=== PATIENT | female | born 1980 | race Caucasian/White ===

== ENCOUNTER 2019-03-01 21:16 | Inpatient (IN) | payer MEDICAID ==
[~2019-03-01] VITALS: Ht 154.9 cm; Wt 83.5 kg
[2019-03-01] MEDS ORDERED: SODIUM CHLORIDE 0.9% 1,000 ML IV ONE (22:42)
[2019-03-01] MEDS ORDERED: ASPIRIN 81MG TABLET PO ONE (22:45)
[2019-03-01 23:20] LABS: BASOPHILS % 0.9 % (0.0-2.0); EOSINOPHILS % 2.1 % (0.0-5.0); HEMATOCRIT. 35.9 % (36.0-48.0); HEMOGLOBIN. 11.9 g/dL (12.0-16.0); LYMPHOCYTES % 27.4 % (20.0-50.0); MEAN CORPUSCULAR HEMOGLOBIN 26.4 pg (28.0-32.0); MEAN CORPUSCULAR VOLUME 79.5 fL (81.0-99.0); MEAN PLATELET VOLUME 8.9 fl (7.4-10.4); MONOCYTES % 11.2 % (2.0-8.0); NEUTROPHILS % 58.4 % (40.0-76.0); PLATELET 222 x1000/uL (130-400); RED BLOOD CELL COUNT 4.51 mill/uL (4.2-5.4); RED CELL DISTRIBUTION WIDTH 15.8 % (11.6-14.6)
[2019-03-01 23:21] LABS: CLARITY URINE CLEAR (CLEAR); COLOR URINE YELLOW (YELLOW); KETONES URINE NEGATIVE (NEGATIVE); LEUKOCYTE ESTERASE URINE NEGATIVE (NEGATIVE); NITRITE URINE NEGATIVE (NEGATIVE); OCCULT BLOOD URINE NEGATIVE (NEGATIVE); PROTEIN URINE NEGATIVE (NEGATIVE); SPECIFIC GRAVITY URINE 1.012 (1.005-1.030); UROBILINOGEN URINE 0.2 E.U./dL (0.2-1.0)
[2019-03-01 23:22] LABS: CHLORIDE 100 mEq/L (98-107)
[2019-03-01 23:25] LABS: PARTIAL THROMBOPLASTIN TIME 24.3 sec (23.4-31.0); PROTHROMBIN TIME 10.3 sec (9.6-11.0)
[2019-03-01 23:27] LABS: ETHANOL BLOOD < 10 mg/dL; HCG SCREEN NEGATIVE
[2019-03-01 23:30] LABS: CREATINE KINASE 419 IU/L (26-192)
[2019-03-01 23:33] LABS: CREATINE KINASE MB FRACTION 1.7 ng/mL (0.5-3.6)
[2019-03-01 23:37] LABS: *AMPHETAMINES SCREEN URINE NEGATIVE (NEGATIVE)
[2019-03-01 23:38] LABS: *BARBITURATES SCREEN URINE NEGATIVE (NEGATIVE); *BENZODIAZEPINES SCREEN URINE NEGATIVE (NEGATIVE); *COCAINE SCREEN URINE NEGATIVE (NEGATIVE); METHADONE URINE SCREEN NEGATIVE (NEGATIVE); OPIATES URINE SCREEN NEGATIVE (NEGATIVE); PHENCYCLIDINE URINE SCREEN NEGATIVE (NEGATIVE)
[2019-03-01 23:39] LABS: CANNABINOID URINE SCREEN NEGATIVE (NEGATIVE)
[2019-03-01] MEDS ORDERED: POTASSIUM CHLORIDE 20MEQ TABLET SR PO ONE (23:45)
[2019-03-02 04:00] VITALS: BP 133/77
[2019-03-02] MEDS ORDERED: ATEN50TA PO (04:06)
[2019-03-02 04:12] VITALS: BP 133/74
[2019-03-02] MEDS ORDERED: DOCUSATE SODIUM 100MG CAPSULE PO PRN (07:45)
[2019-03-02] MEDS ORDERED: ENOXAPARIN 40MG/0.4ML SYR SUBCUT SCH (07:45)
[2019-03-02] MEDS ORDERED: CLONIDINE 0.1MG TABLET PO PRN (07:45)
[2019-03-02] MEDS ORDERED: MAGNESIUM/ALUMINUM HYDROXIDE/SIMETHICONE 30ML UDC PO PRN (07:45)
[2019-03-02] MEDS ORDERED: ONDANSETRON HCL 4MG/2ML INJ IV PRN (07:45)
[2019-03-02] MEDS ORDERED: GUAIFENESIN 200MG/10ML SUGAR FREE UDC PO PRN (07:45)
[2019-03-02] MEDS ORDERED: MORPHINE SULFATE 2 MG/ML CPJ (NOT FOR IM USE) IV PRN (07:45)
[2019-03-02] MEDS ORDERED: DIPHENHYDRAMINE 50MG/ML VIAL IV PRN (07:45)
[2019-03-02 08:00] VITALS: BP 119/63
[2019-03-02] MEDS ORDERED: PNEUMOCOCCAL 23-VAL P-SAC VAC 0.5 ML IM ONE (08:00)
[2019-03-02] MEDS ORDERED: POTASSIUM CHLORIDE 20MEQ/PACKET PO SCH (10:15)
[2019-03-02] MEDS: CEFTRIAXONE 1 G PREMIX 50 ML IV SCH (10:24)
[2019-03-02] MEDS: ACETAMINOPHEN 325MG TABLET PO PRN ×2 (10:24→22:26)
[2019-03-02] MEDS: ENOXAPARIN 30MG/0.3ML SYR SUBCUT SCH ×2 (10:25→22:18)
[2019-03-02] MEDS ORDERED: POTASSIUM CHLORIDE INJ 40 MEQ in DEXT 5% WATER 250 ML IV SCH (11:00)
[2019-03-02] MEDS: AMLODIPINE 2.5MG TABLET PO SCH ×2 (11:34→21:00)
[2019-03-02 11:56] VITALS: BP 113/65
[2019-03-02 16:00] VITALS: BP 122/62
[2019-03-02 16:05] LABS: CHLORIDE 101 mEq/L (98-107)
[2019-03-02 16:11] LABS: PHOSPHORUS 2.5 mg/dL (2.5-4.9)
[2019-03-02 16:14] LABS: CREATINE KINASE MB FRACTION 1.2 ng/mL (0.5-3.6); T4 FREE 1.44 ng/dL (0.76-1.46)
[2019-03-02 16:36] LABS: HEPATITIS B SURFACE ANTIGEN NEGATIVE
[2019-03-02 17:06] LABS: HEPATITIS A AB IGM NEGATIVE (NEGATIVE)
[2019-03-02 20:00] VITALS: BP 101/64
[2019-03-02] MEDS ORDERED: POTASSIUM CHLORIDE 20MEQ/PACKET PO NR (22:00)
[2019-03-03] VITALS: BP 124/70
[2019-03-03 00:48] LABS: CREATINE KINASE 290 IU/L (26-192)
[2019-03-03 00:49] LABS: CREATINE KINASE MB FRACTION < 1.0 ng/mL (0.5-3.6)
[2019-03-03 04:00] VITALS: BP 99/56
[2019-03-03 05:00] VITALS: BP 100/60
[2019-03-03 07:48] VITALS: BP 115/71
[2019-03-03] MEDS: CEFTRIAXONE 1 G PREMIX 50 ML IV SCH (08:39)
[2019-03-03] MEDS: ACETAMINOPHEN 325MG TABLET PO PRN (08:40)
[2019-03-03] MEDS: AMLODIPINE 2.5MG TABLET PO SCH (08:40)
[2019-03-03] MEDS: ENOXAPARIN 30MG/0.3ML SYR SUBCUT SCH (08:41)
[2019-03-03 09:01] LABS: BASOPHILS % 1.2 % (0.0-2.0); EOSINOPHILS % 1.9 % (0.0-5.0); HEMATOCRIT. 31.8 % (36.0-48.0); HEMOGLOBIN. 10.6 g/dL (12.0-16.0); LYMPHOCYTES % 22.7 % (20.0-50.0); MEAN CORPUSCULAR HEMOGLOBIN 26.4 pg (28.0-32.0); MEAN CORPUSCULAR VOLUME 78.9 fL (81.0-99.0); MEAN PLATELET VOLUME 8.7 fl (7.4-10.4); MONOCYTES % 13.2 % (2.0-8.0); PLATELET 245 x1000/uL (130-400); RED BLOOD CELL COUNT 4.03 mill/uL (4.2-5.4); RED CELL DISTRIBUTION WIDTH 15.7 % (11.6-14.6)
[2019-03-03 09:22] LABS: CHLORIDE 102 mEq/L (98-107)
[2019-03-03 09:32] LABS: LDL CHOLESTEROL 84 mg/dL (5-100)
[2019-03-03 09:33] LABS: HDL CHOLESTEROL 40 mg/dL (40-59)
[2019-03-03] MEDS ORDERED: POTASSIUM CHLORIDE 20MEQ TABLET SR PO SCH (10:00)
[2019-03-03 11:52] VITALS: BP 112/70
[2019-03-03] MEDS ORDERED: MAGNESIUM OXIDE 400MG TABLET PO SCH (13:00)
[2019-03-03 14:51] VITALS: BP 112/70
[2019-03-04] MEDS ORDERED: ENOXAPARIN 40MG/0.4ML SYR SUBCUT SCH (09:00)
[2019-03-05 04:16] LABS: HIV SCREEN 4G Non Reactive (Non Reactive)
== END 2019-03-03 15:40 | disposition home or self-care (01) | DRG 425 ==
LOC: ER 21:16 → 8WST 03-02 01:01 → EDBEDREQ 03-02 01:05 → EDBEDREQTM 03-02 01:05 → ENRESERV 03-02 01:39
PROVIDERS: ADMIT Internal Medicine; ATTEND Internal Medicine
DX: E87.6 Hypokalemia (principal); E87.2 Acidosis; M94.0 Chondrocostal junction syndrome [Tietze]; B34.9 Viral infection, unspecified; D64.9 Anemia, unspecified; E03.9 Hypothyroidism, unspecified; E78.5 Hyperlipidemia, unspecified; I10 Essential (primary) hypertension; R73.9 Hyperglycemia, unspecified; R74.0 Nonspecific elevation of levels of transaminase and lactic acid dehydrogenase [LDH]; Z79.899 Other long term (current) drug therapy
CPT/HCPCS: 36415; 71045; 76700; 80048; 80061; 80305; 80320; 82550; 82553; 83605; 83735; 83880; 84100; 84439; 84443; 84481; 84484; 84703; 86705; 86709; 86803; 87340; 87389; 93005; 93306; 93970; 96374; 97165; 99285; J0696; J1650; J2405; J3480; J7030; J7040; J7060; G0480

== ENCOUNTER 2019-09-07 13:13 | Emergency (ER) | payer MEDICAID ==
[~2019-09-07] VITALS: Ht 162.6 cm; Wt 84.0 kg
[~2019-09-07 13:13] MED LIST: ATEN50TA PO
[2019-09-07] MEDS ORDERED: IBUPROFEN 600MG TABLET PO STA (15:56)
[2019-09-07 16:00] VITALS: BP 155/72
[2019-09-07 16:05] LABS: CLARITY URINE CLEAR (CLEAR); COLOR URINE YELLOW (YELLOW); KETONES URINE NEGATIVE (NEGATIVE); LEUKOCYTE ESTERASE URINE NEGATIVE (NEGATIVE); NITRITE URINE NEGATIVE (NEGATIVE); OCCULT BLOOD URINE NEGATIVE (NEGATIVE); PH URINE 6.5 (4.5-8.0); PROTEIN URINE NEGATIVE (NEGATIVE); SPECIFIC GRAVITY URINE 1.017 (1.005-1.030); UROBILINOGEN URINE 0.2 E.U./dL (0.2-1.0)
== END 2019-09-07 17:40 | disposition home or self-care (01) ==
LOC: ER 13:13
DX: D17.39 Benign lipomatous neoplasm of skin and subcutaneous tissue of other sites (principal); B00.9 Herpesviral infection, unspecified; M54.31 Sciatica, right side; I10 Essential (primary) hypertension
CPT/HCPCS: 73502; 76881; 81003; 81025; 82962; 99284

== ENCOUNTER 2023-07-06 15:31 | Emergency (ER) | payer MEDICAID ==
[~2023-07-06] VITALS: Ht 165.1 cm; Wt 91.0 kg
[2023-07-06 15:37] VITALS: BP 151/95; PULSE 71; RESP 18; TEMP 98.3; O2SAT 98
[2023-07-06 16:00] LABS: CLARITY URINE CLEAR (CLEAR); COLOR URINE YELLOW (YELLOW); GLUCOSE URINE NEGATIVE (NEGATIVE); KETONES URINE NEGATIVE (NEGATIVE); LEUKOCYTE ESTERASE URINE NEGATIVE (NEGATIVE); NITRITE URINE NEGATIVE (NEGATIVE); OCCULT BLOOD URINE NEGATIVE (NEGATIVE); PROTEIN URINE NEGATIVE (NEGATIVE); SPECIFIC GRAVITY URINE 1.011 (1.005-1.030)
[2023-07-06 16:16] LABS: BASOPHILS % 1.1 % (0.0-2.0); DIFFERENTIAL COMMENT 0; EOSINOPHILS % 1.8 % (0.0-5.0); HEMATOCRIT. 41.3 % (36.0-48.0); HEMOGLOBIN. 13.5 g/dL (12.0-16.0); MEAN CORPUSCULAR HEMOGLOBIN 24.5 pg (28.0-32.0); MEAN CORPUSCULAR HGB CONC 32.6 g/dL (31.0-37.0); MEAN CORPUSCULAR VOLUME 75.1 fL (81.0-99.0); MEAN PLATELET VOLUME 8.3 fl (7.4-10.4); MONOCYTES % 7.5 % (2.0-8.0); NEUTROPHILS % 41.6 % (40.0-76.0); PLATELET 346 x1000/uL (130-400); WHITE BLOOD COUNT 8.8 x1000/uL (4.5-11.0)
[2023-07-06 16:23] LABS: CHLORIDE 108 mEq/L (98-107); INDEX HEMOLYSI 1 (1-3); INDEX ICTERIC 1 (1-4); INDEX LIPEMIC 1 (1-3); POTASSIUM 3.5 mEq/L (3.5-5.1); PROTHROMBIN TIME 10.3 sec (9.6-11.0); SODIUM 140 mEq/L (136-145)
[2023-07-06 16:32] LABS: ALANINE AMINOTRANSFERASE 136 IU/L (13-61); ASPARTATE AMINOTRANSFERASE 93 IU/L (15-37); BILIRUBIN TOTAL 0.9 mg/dL (0.1-1.0); CALCIUM 9.1 mg/dL (8.5-10.1); CARBON DIOXIDE 22 mEq/L (21-32); CREATININE 0.7 mg/dL (0.6-1.3); GLUCOSE 112 mg/dL (70-105); PROTEIN TOTAL 7.9 g/dL (6.0-8.3); TROPONIN I HIGH SENSITIVITY 5 ng/L (<54); UREA NITROGEN BLOOD 10 mg/dL (7-21)
== END 2023-07-06 19:52 | disposition home or self-care (01) ==
LOC: ER 15:31
DX: R07.89 Other chest pain (principal); I10 Essential (primary) hypertension; E78.00 Pure hypercholesterolemia, unspecified
CPT/HCPCS: 36415; 71045; 80053; 81003; 81025; 84484; 85025; 93005; 99285